=== PATIENT | female | born 2000 | race African-American/Black ===

== ENCOUNTER 2023-08-25 15:58 | Emergency (ER) | payer OTHER ==
[~2023-08-25] VITALS: Ht 177.8 cm; Wt 136.8 kg
[~2023-08-25 15:58] MED LIST: NOCURR
[2023-08-25 16:18] VITALS: BP 123/67; PULSE 71; RESP 18; TEMP 96.3
== END 2023-08-25 19:51 | disposition home or self-care (01) ==
LOC: EMS 15:59
DX: M54.2 Cervicalgia (principal); Y04.8XXA Assault by other bodily force, initial encounter; Y93.89 Activity, other specified; Y92.098 Other place in other non-institutional residence as the place of occurrence of the external cause; Y99.8 Other external cause status
CPT/HCPCS: 70360; 99283